=== PATIENT | female | born 1925 | race Caucasian/White ===

== ENCOUNTER 2017-05-01 10:42 | Inpatient (IN) | payer OTHER ==
[2017-02-15 11:03] VITALS: BMI 29.0
--- NOTE | 2017-02-15 11:52 | PAT Medication Instructions ---
Service Date Feb 15, 2017. Current Home Medication List Ascorbic Acid (Vitamin C *), 500 MG PO QAM Aspirin Enteric Coated (Ecotrin Or Generic *), 81 MG PO QAM Calcium (Caltrate), 1,200 MG PO BID Cholecalciferol (Vitamin D3), 1 TAB PO QAM Enalapril (Vasotec), 20 MG PO BID Esomeprazole Magnesium (Nexium), 40 MG PO QAM Fish Oil ([place]-3), 1 CAP PO BID Gabapentin (Neurontin), 300 MG PO BID Lorazepam (Ativan *), 0.5 MG PO Q6HR PRN Multivitamin (Multivitamin), 1 TAB PO QAM Sennosides-Docusate Sodium (Stool Softener), 1 TAB PO HS Sertraline (Zoloft), 100 MG PO HS Medication Instructions For Your Scheduled Surgery - Check with surgeon for instructions: Aspirin Enteric Coated (Ecotrin Or Generic *), 81 MG PO QAM - Hold the following medications 2 weeks prior to surgery: Fish Oil ([place]-3), 1 CAP PO BID - Hold the following medications the morning of surgery: Multivitamin (Multivitamin), 1 TAB PO QAM Calcium (Caltrate), 1,200 MG PO BID Cholecalciferol (Vitamin D3), 1 TAB PO QAM Ascorbic Acid (Vitamin C *), 500 MG PO QAM Enalapril (Vasotec), 20 MG PO BID - Take the following medications the morning of surgery with a sip of water: Lorazepam (Ativan *), 0.5 MG PO Q6HR PRN Gabapentin (Neurontin), 300 MG PO BID Esomeprazole Magnesium (Nexium), 40 MG PO QAM - Hold the following medications as scheduled the night before surgery: Enalapril (Vasotec), 20 MG PO BID - Take the following medications as scheduled the night before surgery: Sertraline (Zoloft), 100 MG PO HS Sennosides-Docusate Sodium (Stool Softener), 1 TAB PO HS Lorazepam (Ativan *), 0.5 MG PO Q6HR PRN Gabapentin (Neurontin), 300 MG PO BID Calcium (Caltrate), 1,200 MG PO BID If you have any questions please call us at [phone] (Reny Douglas PA-C) or [phone] or [phone]
--- NOTE | 2017-02-15 12:32 | DIAGNOSTIC IMAGING REPORT ---
TWO VIEW CHEST CLINICAL HISTORY: Preoperative examination. FINDINGS: PA and lateral chest radiographs are compared to study dated 05/26/2012. The heart is top normal for projection and there is atherosclerotic calcification of the thoracic aorta. There are changes of chronic interstitial lung disease, with subpleural reticulation and bibasilar airspace opacities. This has progressed from 05/26/2012. No large pleural effusion or pneumothorax is seen. The skeletal structures are osteopenic. Degenerative changes noted throughout the thoracic spine. Fusion hardware is noted in the lower cervical spine. IMPRESSION: 1. There are changes of chronic interstitial lung disease. This has progressed from the 2012 examination. 2. Bibasilar airspace opacities are likely related to chronic lung disease. Superimposed pneumonia/aspiration pneumonitis would be impossible to exclude. Clinical correlation will be required. Electronically signed by: Daniel Hankins M.D. 02/15/2017 12:30 PM Dictated Date/Time: 02/15/2017 12:28 PM
[2017-02-15 12:42] LABS: BASO % 0.4 %; BASO ABS # 0.03 K/uL (0-0.2); COMPLETE YES; EOS % 3.3 %; HEMATOCRIT 35.7 % (37-47); IG% 0.3 %; LYMPH % 14.7 %; MEAN CELL VOLUME 87.3 fL (80-100); MEAN CORPUSCULAR HEMOGLOBIN 28.4 pg (25-34); MEAN CORPUSCULAR HGB CONC 32.5 g/dl (32-36); MEAN PLATELET VOLUME 9.1 fL (7.4-10.4); MONO % 7.9 %; NEUT % 73.4 %; PLATELET COUNT 221 K/uL (130-400); RED BLOOD COUNT 4.09 M/uL (4.2-5.4)
[2017-02-15 12:49] LABS: URINE APPEARANCE CLEAR (CLEAR); URINE BILIRUBIN NEG (NEG); URINE COLOR YELLOW; URINE NITRITE NEG (NEG); URINE SPECIFIC GRAVITY 1.007 (1.000-1.030); UROBILINOGEN NEG (NEG)
[2017-02-15 12:58] LABS: MANUAL MICROSCOPIC REQUIRED? NO; REVIEW REQ? NO
[2017-02-15 12:59] LABS: BUN/CREATININE RATIO 23.5 (10-20); CREATININE 0.86 mg/dl (0.60-1.20); POTASSIUM 4.5 mmol/L (3.5-5.1)
[2017-02-15 13:04] LABS: CALCIUM 9.2 mg/dl (8.5-10.1)
[2017-04-18 11:36] VITALS: BMI 29.0
[~2017-05-01] VITALS: Ht 167.6 cm; Wt 81.6 kg
[2017-05-01] VITALS (8 sets, daily range): BP systolic 131–154; BP diastolic 60–87; PULSE 71–86; TEMP 36.3–36.8; O2SAT 95–97; Ht 167.6 cm; Wt 81.6 kg
[~2017-05-01 10:42] MED LIST: ALBU18002 INH; AMLO2.5T PO; ASCA500 PO; ASPEC81 PO; ATV5 PO; CALCTAB5 PO; CEFAZOLIN 2000 MG/60 ML D5W IV SCH; CHOL1000 PO; LACTATED RINGER'S 1000ML 1,000 ML IV SCH; MULT-506 PO; NXM/40 PO; OMEG10007 PO; SENNTAB23 PO; SERT-234 PO
[2017-05-01] MEDS ORDERED: NITR1CAP32 PO (11:17)
[2017-05-01] MEDS ORDERED: MIDAZOLAM HCL 1 MG/ML 2ML VIAL ONE (12:29)
[2017-05-01] MEDS ORDERED: FENTANYL CITRATE INJ 50 MCG/1 ML 2 ML VIAL ONE ×2 (12:29→14:49)
--- NOTE | 2017-05-01 12:31 | History & Physical Bridge Note ---
H&P Re-Evaluation Bridge Note: I have examined the patient, reviewed the History & Physical and in the interval since the performance of the History & Physical I have noted the following changes of clinical significance: No changes noted
--- NOTE | 2017-05-01 12:36 | History and Physical ---
History & Physical Date May 01, 2017. Chief Complaint back and leg pain History of Present Illness The patient is a 89 year old female with complaints of Additional History Hepatic Disease: No Endocrine Disorder: No Kidney Disease: No Hypertension: No Heart Disease: No Bleeding Tendencies: No Infectious Diseases: No Allergies Coded Allergies: Iodinated Contrast Media (Verified Allergy, Intermediate, HIVES,RASH, ) Enalapril (Verified Allergy, Unknown, FACIAL EDEMA, LIPS, TONGUE, 05/01/17) Omeprazole (Verified Allergy, Unknown, unsure of rxn, told not to take anymore by md, 05/01/17) Shellfish Allergy (Unverified Allergy, Unknown, HIVES, 05/01/17) PER RECORDS Shrimp (Verified Allergy, Unknown, hives, 05/01/17) Simvastatin (Verified Adverse Reaction, Intermediate, MUSCLE PAIN, 05/01/17) Home Medications Scheduled Amlodipine (Norvasc), 2.5 MG PO QAM Ascorbic Acid (Vitamin C *), 500 MG PO QAM Aspirin Enteric Coated (Ecotrin Or Generic *), 81 MG PO QAM Calcium (Caltrate), 600 MG PO BID Cholecalciferol (Vitamin D3), 1 TAB PO QAM Esomeprazole Magnesium (Nexium), 40 MG PO QAM Fish Oil ([place]-3), 1 CAP PO BID Lorazepam (Ativan *), 0.5 MG PO Q6HR PRN Multivitamin (Multivitamin), 1 TAB PO QAM Nitrofurantoin Macrocrystals (Macrodantin), 100 MG PO BID Sennosides-Docusate Sodium (Stool Softener), 1 TAB PO HS Sertraline (Zoloft), 100 MG PO HS Scheduled PRN Albuterol Sulfate (Proair Respiclick), 2 PUFF INH Q4 PRN for SOB/Wheezing Physical Examination Skin: warm/dry, no rash Eyes: normal inspection, EOMI, sclerae normal ENT: normal ENT inspection, pharynx normal Head: normocephalic, atraumatic Neck: supple, no adenopathy, trachea midline Respiratory/Chest: lungs clear, normal breath sounds, no respiratory distress Cardiovascular: regular rate, rhythm, no edema, no murmur Abdomen / GI: normal bowel sounds, non tender Back: normal inspection Extremities: normal inspection, normal range of motion Neurologic/Psych: no motor/sensory deficits, alert, normal reflexes, oriented x 3 Diagnosis lumbar stenosis Plan of Treatment decompression fusion L3-4
[2017-05-01] MEDS ORDERED: BACITRACIN 50000 UNIT VIAL ONE (12:57)
[2017-05-01] MEDS ORDERED: SODIUM CHLORIDE 0.9% PF 50 ML VIAL ONE (12:57)
[2017-05-01] MEDS ORDERED: BUPIVACAINE/EPINEPHRINE 0.25% 1:200,000 30 ML VIAL ONE (13:01)
[2017-05-01] MEDS ORDERED: HYDROmorphone INJ 2 MG/ML SYR/VIAL ONE (13:42)
[2017-05-01] MEDS ORDERED: LIDOCAINE HCL 2% 2 ML VIAL (20MG/ML) ONE (13:53)
[2017-05-01] MEDS ORDERED: PROPOFOL IV EMULSION 10 MG/ML 20 ML VIAL IV ONE (13:53)
[2017-05-01] MEDS ORDERED: ROCURONIUM BROMIDE 10 MG/ML 5 ML VIAL ONE (13:53)
[2017-05-01] MEDS ORDERED: GLYCOPYRROLATE INJ 0.2 MG/ML VIAL ONE (13:53)
[2017-05-01] MEDS ORDERED: DEXAMETHASONE SOD INJ 4 MG/ML VIAL ONE (13:53)
[2017-05-01] MEDS ORDERED: EpHEDrine SULFATE 50MG/5ML SYR ONE (13:53)
[2017-05-01] MEDS ORDERED: ONDANSETRON INJ 2 MG/ML 2 ML VIAL ONE (13:53)
[2017-05-01] MEDS ORDERED: NEOSTIGMINE METHYLSULFATE 1 MG/ML 10ML VIAL ONE (13:53)
[2017-05-01] MEDS ORDERED: BUPIVACAINE/EPINEPHRINE 0.25% 1:200,000 30 ML VIAL INJ ONE (14:05)
[2017-05-01] MEDS ORDERED: EpHEDrine SULFATE INJ 50 MG/ML AMP ONE (14:28)
[2017-05-01] MEDS ORDERED: HYDROmorphone INJ 1 MG/ML SYR IV PRN (14:30)
[2017-05-01] MEDS ORDERED: EpHEDrine SULFATE INJ 50 MG/ML AMP IV PRN (14:30)
[2017-05-01] MEDS ORDERED: LABETALOL HCL IV 5 MG/ML 20ML IV PRN (14:30)
[2017-05-01] MEDS ORDERED: ONDANSETRON INJ 2 MG/ML 2 ML VIAL IV PRN ×2 (14:30→14:45)
[2017-05-01] MEDS ORDERED: ATROPINE SULFATE 0.1 MG/ML 5ML SYR IV PRN (14:30)
[2017-05-01] MEDS ORDERED: FENTANYL CITRATE INJ 50 MCG/1 ML 2 ML VIAL IV PRN (14:30)
[2017-05-01] MEDS ORDERED: MEPERIDINE HCL 25 MG/ML CARP IV PRN (14:30)
[2017-05-01] MEDS ORDERED: FLOSEAL HEMOSTATIC MATRIX 10ML TOP ONE (14:35)
[2017-05-01] MEDS: SODIUM CHLORIDE 0.9% 1000ML 1,000 ML IV SCH ×2 (14:44→21:11)
[2017-05-01] MEDS ORDERED: PROMETHAZINE HCL INJ 12.5 MG in SODIUM CHLORIDE 0.9% 50ML 50 ML IV PRN (14:45)
[2017-05-01] MEDS ORDERED: FAMOTIDINE 20 MG TAB PO PRN (14:45)
[2017-05-01] MEDS ORDERED: ALUMINUM/MAGNESIUM SUSP 30 ML UDC PO PRN (14:45)
[2017-05-01] MEDS ORDERED: SOD PHOSPHATE/SOD BIPHOSPHATE ENEMA 132 ML BTL PR PRN (14:45)
[2017-05-01] MEDS ORDERED: BISACODYL 10 MG SUPP PR PRN (14:45)
[2017-05-01] MEDS ORDERED: LORAZEPAM INJ 0.5 MG in SYRINGE 0.75 ML IV PRN (14:45)
[2017-05-01] MEDS ORDERED: ACETAMINOPHEN IV 100 ML IV PRN (14:45)
[2017-05-01] MEDS ORDERED: ACETAMINOPHEN 500 MG TAB PO PRN (14:45)
[2017-05-01] MEDS ORDERED: LORAZEPAM 0.5 MG TAB PO PRN (14:45)
[2017-05-01] MEDS ORDERED: hydrOXYzine HCL 25 MG TAB PO PRN (14:45)
[2017-05-01] MEDS ORDERED: ALBUTEROL HFA INHALER 8.5 GM INH PRN (14:45)
[2017-05-01] MEDS ORDERED: DO NOT ADMINISTER PNEUMOCOCCAL VACCINE PRN ×2 (14:45)
[2017-05-01] MEDS ORDERED: NALOXONE HCL 0.4 MG/1 ML VIAL/CARP IV PRN ×2 (14:45→15:30)
[2017-05-01] MEDS ORDERED: MAGNESIUM HYDROXIDE SUSP 30 ML UDC PO PRN (14:45)
[2017-05-01] MEDS ORDERED: METOCLOPRAMIDE HCL INJ 5 MG/ML 2 ML VIAL IV PRN (14:45)
[2017-05-01] MEDS ORDERED: DO NOT ADMINISTER FLU VACCINE PRN ×3 (14:45)
--- NOTE | 2017-05-01 14:48 | [facility] Operative Report ---
Operative Report Operative Date May 01, 2017. Pre-Operative Diagnosis Lumbar Stenosis Post-Operative Diagnosis same Procedure(s) Performed #1 lumbar decompression bilateral medial facetectomy and foraminotomy L2 3 L3 4. #2 posterior spinal fusion L3 4. #3 placement of posterior instrumentation L3 4 using or through his rods and screws. 4 placement of allograft and morcellized autograft and posterior gutters. #5 placement of infuse collagen sponge combined with Master graft in the posterior lateral gutters. Surgeon Dr. Sebastian Meza Microphone Boom Operator Surgeon(s) Jayleen Tabares PA-C Estimated Blood Loss 100ml Findings Severe spinal stenosis. Specimens None per surgeon Description of Procedure Patient is met throughout the case discussed questions addressed with the patient was taken back to the operative suite after undergoing successful general intubation E procedures placed in a prone position the Elier table top of the Nazario frame. All bony prominences were well-paddedinspected to ensure there is no external pressure placement. This point the lumbar spines prepped and draped in the normal sterile fashion. Sharp dissection with the assistance of Bovie cartilage was performed exposing the lamina and transverse processes of L3 4. A complete laminectomy of L3 partial laminectomy of L2 was performed addressing severe lateral recessed foraminal stenosis. After addressing the stenosis pedicle fusion and placed in 34 bilaterally assistance of fluoroscopy hemiparesis juan locked in position. Changes processes of L3 for the #2 subcortical bleeding bone and physical Mr. fluoroplastic morcellized autograft was placed in the posterior lateral gutters. A 15 round BAKARI drain was placed and sewn in position. Incisions then closed with 1 Vicryl fascia tubercle something C4 call for Keren closure Steri- Strips sterile dressing placed patient was taken to the PACU in stable condition. I attest to the content of the Intraoperative Record and any orders documented therein. Any exceptions are noted below.
--- NOTE | 2017-05-01 15:11 | DIAGNOSTIC IMAGING REPORT ---
LUMBAR SPINE 2 OR 3 VIEW CLINICAL HISTORY: 89-year-old female with L3-4 decompression/fusion. TECHNIQUE: 2 fluoroscopic spot images of the lumbar spine including frontal and lateral views were obtained as part of a surgical procedure. COMPARISON: None. FINDINGS/IMPRESSION: Posterior interpedicular juan and screw fixation of L3-4 noted. No gross evidence of hardware complication. Vertebral body heights maintained. Grossly normal lumbar alignment within this limited examination. Please see separately dictated surgical report for further procedural details. Electronically signed by: Serafin Arguello 05/01/2017 3:10 PM Dictated Date/Time: 05/01/2017 3:07 PM
[2017-05-01] MEDS ORDERED: SODIUM CHLORIDE 0.9% 1000ML 1,000 ML IV SCH (15:20)
[2017-05-01] MEDS ORDERED: HYDROmorphone HCL 0.5MG/ML 50 ML CASSETTE ONE (15:25)
[2017-05-01] MEDS ORDERED: HYDROmorphone HCL 0.5MG/ML 50 ML CASSETTE IV PRN (15:30)
--- NOTE | 2017-05-01 15:45 | Anesthesiology Progress Note ---
Anesthesia Post Op Note Date & Time May 01, 2017 at 15:45 Vital Signs Pain Intensity: 0 Vital Signs Past 12 Hours Date Time Temp Pulse Resp B/P (MAP) Pulse Ox O2 Delivery O2 Flow Rate FiO2 05/01/17 15:35 36.8 84 16 149/78 95 Nasal Cannula 4 05/01/17 15:25 85 16 151/73 99 Nasal Cannula 4 05/01/17 15:15 82 16 156/78 99 Mask 10 05/01/17 15:05 87 16 159/73 99 Mask 10 05/01/17 14:57 36.3 84 16 147/78 96 Mask 10 05/01/17 11:10 36.8 79 20 152/87 95 Room Air Notes Mental Status: alert / awake / arousable, participated in evaluation Pt Amnestic to Procedure: Yes Nausea / Vomiting: adequately controlled Pain: adequately controlled Airway Patency, RR, SpO2: stable & adequate BP & HR: stable & adequate Hydration State: stable & adequate Anesthetic Complications: no major complications apparent
[2017-05-01] MEDS: DEXAMETHASONE INJ 6 MG in SYRINGE 0 ML IV SCH (19:55)
[2017-05-01] MEDS: NITROFURANTOIN MONOHYDRATE 100 MG CAP PO SCH (21:08)
[2017-05-01] MEDS: DOCUSATE SODIUM/SENNA 50/8.6MG TAB PO SCH (21:09)
[2017-05-01] MEDS: SERTRALINE HCL 100 MG TAB PO SCH (21:09)
[2017-05-01] MEDS: CEFAZOLIN IV 2,000 MG in DEXTROSE 5% 50ML 50 ML IV SCH (21:33)
[2017-05-02] VITALS (9 sets, daily range): BP systolic 108–158; BP diastolic 64–77; PULSE 76–87; TEMP 36.6–37; O2SAT 94–98
[2017-05-02] MEDS: DEXAMETHASONE INJ 6 MG in SYRINGE 0 ML IV SCH ×2 (02:17→09:47)
[2017-05-02] MEDS: SODIUM CHLORIDE 0.9% 1000ML 1,000 ML IV SCH (03:43)
[2017-05-02] MEDS: CEFAZOLIN IV 2,000 MG in DEXTROSE 5% 50ML 50 ML IV SCH (05:36)
[2017-05-02 05:50] LABS: BASO % 0.1 %; BASO ABS # 0.01 K/uL (0-0.2); COMPLETE YES; HEMATOCRIT 33.9 % (37-47); IG% 0.3 %; LYMPH % 2.8 %; LYMPH ABS # 0.36 K/uL (1.2-3.4); MEAN CELL VOLUME 84.3 fL (80-100); MEAN CORPUSCULAR HEMOGLOBIN 26.4 pg (25-34); MEAN CORPUSCULAR HGB CONC 31.3 g/dl (32-36); MEAN PLATELET VOLUME 8.9 fL (7.4-10.4); MONO % 3.6 %; NEUT % 93.2 %; PLATELET COUNT 224 K/uL (130-400); RED BLOOD COUNT 4.02 M/uL (4.2-5.4); WHITE BLOOD COUNT 12.64 K/uL (4.8-10.8)
[2017-05-02] MEDS ORDERED: OXYCODONE HCL IR 5 MG TAB (IMMEDIATE RELEASE) PO PRN (06:00)
[2017-05-02] MEDS ORDERED: HYDROmorphone INJ 0.5 MG/0.5 ML SYR IV PRN (06:00)
[2017-05-02] MEDS ORDERED: DC PCA ONE (06:00)
[2017-05-02 06:11] LABS: BUN/CREATININE RATIO 15.4 (10-20); CALCIUM 8.1 mg/dl (8.5-10.1); CREATININE 0.73 mg/dl (0.60-1.20); POTASSIUM 4.5 mmol/L (3.5-5.1)
[2017-05-02] MEDS ORDERED: NURSING VERBAL MED ORDER ONE (07:00)
--- NOTE | 2017-05-02 08:19 | Anesthesiology Progress Note ---
Anesthesia Post Op Note Date & Time May 02, 2017 at 08:19 Vital Signs Pain Intensity: 0.0 Vital Signs Past 12 Hours Date Time Temp Pulse Resp B/P (MAP) Pulse Ox O2 Delivery O2 Flow Rate FiO2 05/02/17 07:05 Room Air 05/02/17 03:02 37.0 85 16 108/65 (79) 96 Nasal Cannula 2.0 05/01/17 23:45 Nasal Cannula 2.0 05/01/17 23:06 36.7 86 16 144/60 (88) 97 Nasal Cannula 2.0 Notes Mental Status: alert / awake / arousable, participated in evaluation Pt Amnestic to Procedure: Yes Nausea / Vomiting: adequately controlled Pain: adequately controlled Airway Patency, RR, SpO2: stable & adequate BP & HR: stable & adequate Hydration State: stable & adequate Anesthetic Complications: no major complications apparent
[2017-05-02] MEDS: ASPIRIN 81 MG ECTAB PO SCH (08:52)
[2017-05-02] MEDS: NITROFURANTOIN MONOHYDRATE 100 MG CAP PO SCH ×2 (08:52→21:02)
[2017-05-02] MEDS: PANTOprazole SOD 40 MG TAB PO SCH (08:52)
[2017-05-02] MEDS: AMLODIPINE BESYLATE 5 MG TAB PO SCH (08:52)
--- NOTE | 2017-05-02 10:57 | Progress Note ---
Progress Note Date of Service May 02, 2017. Progress Note Patient is doing well postoperatively. Leg symptoms are markedly improved. Back pain well controlled. Vital signs are stable BAKARI drain 55 mL. On exam she is standing and ambulating bathroom and a narrow-based steady gait. She has good strength testing. Assessment status post lumbar decompression fusion by plan this time will continue physical therapy occupational therapy consult protective services social worker for home nursing. Hopefully discharge home Saturday.
[2017-05-02] MEDS ORDERED: RXC5 PO (16:42)
--- NOTE | 2017-05-02 16:43 | Discharge Instructions ---
Discharge Instructions Date of Service May 02, 2017. Admission Reason for Admission: Lumbar Spinal Stenosis Discharge Discharge Diagnosis / Problem: lumbar stenosis Discharge Goals Goal(s): Improve function Activity Recommendations Activity Limitations: per Instructions/Follow-up section . Instructions / Follow-Up Instructions / Follow-Up ACTIVITY RECOMMENDATIONS: SELF CARE INSTRUCTIONS AFTER THORACIC/LUMBAR FUSIONS 1. You may walk to your tolerance. It is good exercise for your legs and back. Expect some back and intermittent leg aches and pains. 2. You may perform "counter-top" level activities (make a sandwich, jeff with a project, etc.). 3. No bending or lifting of more than 10 pounds or back twisting of any nature (roll like a log when turning in bed). 4. You may ride in a car for 20-30 minutes at a time. No driving until after your first visit with your doctor. 5. Frequent changes of position and restricting sitting to 30 minutes at a time will help limit the amount of back spasms and stiffness you may experience. 6. You may discontinue the use of ambulatory aids (cane, crutches, etc.) once your strength and confidence allow. 7. You may manager information the shower and let water strike your incision when you arrive home at least once daily. Do not take a tub bath, sit in a hot tub or go into a swimming pool until after your first recheck in the office. SPECIAL CARE INSTRUCTIONS: VERY IMPORTANT TO READ AND REVIEW A. Your surgical incision has been closed with a cosmetic suture under the skin that will dissolve in about 6 weeks. In 14 days, you can use a pair of clean scissors and cut the suture that is left outside of the skin at the ends of your incision. 1. The small skin tapes can be removed 7 days after surgery if they have not fallen off by that point. 2. You may keep the wound open to air as much as possible to promote healing after post-op day number 5 unless told otherwise by your doctor. 3. If you think the wound looks like it is becoming infected (redness or worsening drainage) and/or you are experiencing fever, chill or worsening back pain and muscle spasms, contact the office so that we may evaluate you as soon as possible. B. Complications are uncommon, but please contact us if you have any signs or symptoms of: 1. wound infection (fever higher than 102.5 degrees F, redness, separation of wound, drainage, or increasing pain from the incision) 2. blood clots in legs (pain, swelling, redness and warmth in legs) 3. urinary tract infection (fever higher than 102.5 degrees F, burning upon urination or increased frequency of urination) 4. nerve problems (inability to walk on your toes or heels, numbness, loss of bowel or bladder control) 5. any other symptoms that concern you C. Please call the office at if you have any concerns or questions about your operation or recovery. D. No smoking! Smoking drastically decreases the chance of a solid fusion. E. Do not take any anti-inflammatory medications (Indocin, Advil, Motrin, Aspirin, Naprosyn, etc.) as these may inhibit the chance of a solid fusion. Tylenol is okay to take for pain. MANAGING PAIN AFTER SPINAL SURGERY 1. Narcotic medication is intended for short-term use and will be provided for surgical pain. Surgical pain usually lasts for a period of 4-6 weeks. Narcotic medication includes Percocet, Vicodin, Darvocet, Tylenol #3 or Lortab. 2. Longer-term pain is more appropriately treated with non-narcotic medication such as Tylenol ES. 3. Muscle spasm is not appropriately treated with narcotics. Muscle relaxers such as Soma, Flexeril or Skelaxin can be used along with Tylenol ES. 4. Remember that we all live with some "aches and pains". This is not unusual or uncommon after an injury or as we get older. a. Back pain is expected and may include muscle spasms for 4 to 6 weeks after surgery. The pain should gradually improve. If the pain worsens for no apparent reason, please contact the office. b. Intermittent leg pain may also be experienced and should not be concerned about unless it worsens for no apparent reason. If so, please contact the office. 5. We will provide appropriate medication within the normal guidelines of their prescribed use. We will also be very cautious and aware of potential abuse and extended duration of patients' medication needs. a. Pain medications are for your comfort and to assist with sleep and rest so that the tissue can heal. They are not provided in order to return to normal activity and should not be used through the day. To do so or worsening pain at night can result from ongoing tissue damage and development of tolerance to the prescribed medicine. 6. Please allow 2-3 days to process refills. Prescriptions will not be mailed but must be picked up at the office. FOLLOW UP VISIT: Keep your scheduled follow-up appointment. Any questions, please call the office at . Current Hospital Diet Patient's current hospital diet: Regular Diet Discharge Diet Recommended Diet: Regular Diet Procedures Procedures Performed: L3-L4 Lumbar Laminectomy, Decompression; L3-L4 Posterolateral Instrumented Fusion; Bone Morphogenetic Protein Pending Studies Studies pending at discharge: no Medical Emergencies . Who to Call and When: Medical Emergencies: If at any time you feel your situation is an emergency, please call 911 immediately. . Non-Emergent Contact Non-Emergency issues call your: Primary Care Provider . "Provider Documentation" section prepared by Sebastian Meza. . VTE Core Measure Inpt VTE Proph given/why not?: Lillian Jean Baptiste, SCD's
[2017-05-02] MEDS: SERTRALINE HCL 100 MG TAB PO SCH (21:02)
[2017-05-02] MEDS: DOCUSATE SODIUM/SENNA 50/8.6MG TAB PO SCH (21:02)
[2017-05-03] MEDS: POLYETHYLENE (MIRALAX) 17 GM PACK PO SCH ×2 (06:33→11:23)
[2017-05-03 07:00] VITALS: BP 157/82; PULSE 73; TEMP 36.7; O2SAT 95
[2017-05-03] MEDS: AMLODIPINE BESYLATE 5 MG TAB PO SCH (07:45)
[2017-05-03] MEDS: ASPIRIN 81 MG ECTAB PO SCH (07:45)
[2017-05-03] MEDS: PANTOprazole SOD 40 MG TAB PO SCH (07:45)
[2017-05-03] MEDS: NITROFURANTOIN MONOHYDRATE 100 MG CAP PO SCH (08:27)
[2017-05-03 14:14] VITALS: BP 157/82; PULSE 73; TEMP 36.7; O2SAT 95
[2017-05-03 15:19] VITALS: BP 148/74; PULSE 76; TEMP 36.9; O2SAT 91
--- NOTE | 2017-05-03 16:09 | Discharge Summary ---
Orthopedic Discharge Summary Admission Date/Reason May 01, 2017 at 12:30 Lumbar Spinal Stenosis. Discharge Date/Disposition May 03, 2017 Home with services Diagnosis Principal Diagnosis: lumbar stenosis Admission Physical Exam As per Admitting History & Physical. Hospital Course Patient did well postoperatively ambulate in well leg pain markedly improved BAKARI drain decreased properly centrally discharged home postop day 2. Discharge orders and instructions can be found on the chart for further review. Discharge Instructions Please refer to the electronic Patient Visit Report (Discharge Instructions) for additional information.
== END 2017-05-03 16:15 | disposition home health service (06) | DRG 460 ==
LOC: C.ACU 10:42 → C.3E 12:30 → ENRESERV 15:34
PROVIDERS: ADMIT Orthopaedic Surgery Orthopaedic Surgery of the Spine; ATTEND Orthopaedic Surgery Orthopaedic Surgery of the Spine
PROC: 01NB0ZZ Release Lumbar Nerve, Open Approach (ICD-10-PCS; principal; 2017-05-01 12:45)
PROC: 0SG0071 Fusion of Lumbar Vertebral Joint with Autologous Tissue Substitute, Posterior Approach, Posterior Column, Open Approach (ICD-10-PCS; principal; 2017-05-01 12:45)
DX: M48.06 Spinal stenosis, lumbar region (principal)